=== PATIENT | female | born 1980 | race African-American/Black ===

== ENCOUNTER 2016-12-04 09:36 | Emergency (ER) | payer MEDICAID ==
[~2016-12-04] VITALS: Ht 160 cm; Wt 105.0 kg
[~2016-12-04 09:36] MED LIST: AMOX875 PO; MMW SWISH-SWAL
[2016-12-04 09:37] VITALS: BP 141/71; PULSE 90; RESP 20; TEMP 99; O2SAT 98
--- NOTE | 2016-12-04 10:09 | PD ---
HPI Chief Complaint: GI Complaint Time Seen by Provider: 10:09 Travel History International Travel<30 days: No Contact w/Intl Traveler<30days: No Traveled to known affect area: No History of Present Illness HPI 36 year-old female presents to emergency department for evaluation of nausea, vomiting, and diarrhea. This began this morning. Patient states that her children have both had this and have gotten better on their own. Denies any fever or chills. No cough or chest congestion. Denies any urinary symptoms. She states that she cannot keep anything down. PFSH Past Medical History Medical History: Denies Significant Hx Cancer: No Cardiovascular Problems: No Diminished Hearing: No Endocrine: No Gastrointestinal Disorders: No Genitourinary: No Immune Disorder: No Implanted Vascular Access Dvce: No Musculoskeletal: No Neurologic: No Psychiatric: No Reproductive: No Respiratory: Yes (ASTHMA) Immunizations Current: Yes ?: Not LMP: 11/2016 : 2 Para: 3 Ovarian Cysts: Yes Dilation and Curettage (D&C): Yes Tubal Ligation: Yes Past Surgical History Abdominal Surgery: Yes (appendectomy) Appendectomy: Yes Section: Yes (x 2) Gynecologic Surgery: Yes (C SECTION) Other Surgery: Yes Social History Alcohol Use: No Tobacco Use: No Substance Use: No Allergies-Medications (Allergen,Severity, Reaction): Coded Allergies: Hydrocodone (Verified Allergy, Severe, Swelling, 12/04/16) PATIENT STATES THAT LIQUID LORTAB MADE HER EYES SWELL 1-2 YEARS AGO, 03/14/15 Codeine (Unverified Allergy, Mild, Swelling, 12/04/16) Reported Meds & Prescriptions Reported Meds & Active Scripts Active Zofran Odt (Ondansetron Odt) 4 Mg Tab 4 Mg SL Q6HR PRN Review of Systems Except as stated in HPI: all other systems reviewed are Neg Physical Exam Narrative GENERAL: Well-nourished female patient, ambulatory and in no acute distress SKIN: Warm and dry. HEAD: Atraumatic. Normocephalic. EYES: Pupils equal and round. No scleral icterus. No injection or drainage. ENT: No nasal bleeding or discharge. Mucous membranes pink and moist. NECK: Trachea midline. No JVD. CARDIOVASCULAR: Regular rate and rhythm. No murmur appreciated. RESPIRATORY: No accessory muscle use. Clear to auscultation. Breath sounds equal bilaterally. GASTROINTESTINAL: Abdomen soft, non-tender, nondistended. Hepatic and splenic margins not palpable. MUSCULOSKELETAL: No obvious deformities. No clubbing. No cyanosis. No edema. NEUROLOGICAL: Awake and alert. No obvious cranial nerve deficits. Motor grossly within normal limits. Normal speech. PSYCHIATRIC: Appropriate mood and affect; insight and judgment normal. Data Data Last Documented VS Vital Signs Date Time Temp Pulse Resp B/P Pulse Ox O2 Delivery O2 Flow Rate FiO2 12/04/16 09:37 99.0 90 20 141/71 98 Room Air Orders Influenzae A/B Antigen (12/04/16 10:08) Sodium Chlor 0.9% 1000 Ml Inj (Ns 1000 M (12/04/16 10:15) Ondansetron Inj (Zofran Inj) (12/04/16 10:15) Iv Access Insert/Monitor (12/04/16 10:08) [facility] Medical Decision Making Medical Screen Exam Complete: Yes Emergency Medical Condition: Yes Medical Record Reviewed: Yes Differential Diagnosis Gastritis versus gastroenteritis versus influenza Narrative Course 36-year-old female presents to the emergency department for evaluation. Patient appears overall well and without distress. IV fluids and Zofran is administered. Patient verbalizes improvement in her symptoms. Influenza is negative. This likely a viral gastroenteritis. Patient will be discharged home with a prescription for Zofran. She is encouraged to follow-up with primary care provider and return immediately with any acute worsening of symptoms. Diagnosis Primary Impression: Gastroenteritis Referrals: Primary Care Physician Patient Instructions: Gastroenteritis (ED), General Instructions Departure Forms: Tests/Procedures, Work Release Enter return to work date: Dec 06, 2016 Additional Instructions: Rest Maintain adequate oral hydration Follow-up with the primary care provider Tylenol and/or ibuprofen as directed on the package as needed for fever and/or pain Return immediately to the emergency department with any acute worsening of symptoms Med/Other Pt SpecificInfo: Prescription(s) given Scripts Ondansetron Odt (Zofran Odt)4 Mg Tab4 Mg SL Q6HR PRN (Nausea/Vomiting) #15 TAB Ref 0 Prov:Xenia Stokes 12/04/16 Disposition: 01 DISCHARGE HOME Condition: Stable Xenia Stokes Dec 04, 2016 10:09
[2016-12-04] MEDS ORDERED: SODIUM CHLOR 0.9% 1000 ML INJ 1,000 ML IV ONE (10:15)
[2016-12-04] MEDS ORDERED: ONDANSETRON HCL 4 MG/2 ML VIAL IV PUSH ONE (10:15)
[2016-12-04] MEDS ORDERED: ZOFR4TAB3 SL (11:22)
== END 2016-12-04 13:21 | disposition home or self-care (01) ==
LOC: NEPB 09:36
DX: K52.9 Noninfective gastroenteritis and colitis, unspecified (principal)
CPT/HCPCS: 87804; 96374; 99284; J2405; J7030

== ENCOUNTER 2017-03-02 17:55 | Emergency (ER) | payer MEDICAID ==
[~2017-03-02 17:55] MED LIST changes: -AMOX875 PO; -MMW SWISH-SWAL; +ZOFR4TAB3 SL
[2017-03-02 17:56] VITALS: BP 153/74; PULSE 76; RESP 24; TEMP 98.6; O2SAT 100
== END 2017-03-02 18:47 | disposition left against medical advice (07) ==
LOC: NED 17:55
DX: R68.89 Other general symptoms and signs (principal)
CPT/HCPCS: 99281

== ENCOUNTER 2017-06-26 19:44 | Emergency (ER) | payer MEDICAID ==
[~2017-06-26] VITALS: Ht 160 cm; Wt 110.0 kg
[2017-06-26 19:46] VITALS: BP 166/82; PULSE 75; RESP 15; TEMP 98.7; O2SAT 98
== END 2017-06-26 20:14 | disposition left against medical advice (07) ==
LOC: NED 19:44
DX: Z53.21 Procedure and treatment not carried out due to patient leaving prior to being seen by health care provider (principal)
CPT/HCPCS: 99281

== ENCOUNTER 2017-10-01 07:49 | Emergency (ER) | payer MEDICAID ==
[~2017-10-01] VITALS: Ht 160 cm; Wt 107.0 kg
[2017-10-01 07:50] VITALS: BP 168/95; PULSE 66; RESP 16; TEMP 97.8; O2SAT 98
--- NOTE | 2017-10-01 08:07 | PD ---
HPI Chief Complaint: Medical Clearance Time Seen by Provider: 08:07 Travel History International Travel<30 days: No Contact w/Intl Traveler<30days: No Traveled to known affect area: No History of Present Illness HPI 36-year-old Afro-Mexican female presents emergency Department with worsening bilateral arm and hand numbness which has been progressive over the last 3 weeks. Patient works as a community aide. Patient states when she goes to sleep at night her hands seemed fine but she wakes up several times during the evening with bilateral numbness and tingling worse in the right thumb. Patient feels that the symptoms are worsening over the past 3 weeks. She has no other symptoms. She is allergic to codeine and hydrocodone. PFSH Past Medical History Cancer: No Cardiovascular Problems: No Diminished Hearing: No Endocrine: No Gastrointestinal Disorders: No Genitourinary: No Immune Disorder: No Implanted Vascular Access Dvce: No Musculoskeletal: No Neurologic: No Psychiatric: No Reproductive: No Respiratory: Yes (ASTHMA) Immunizations Current: Yes ?: Not : 2 Para: 3 Ovarian Cysts: Yes Dilation and Curettage (D&C): Yes Tubal Ligation: Yes Past Surgical History Abdominal Surgery: Yes (appendectomy) Appendectomy: Yes Section: Yes (x 2) Gynecologic Surgery: Yes (C SECTION) Other Surgery: Yes Social History Alcohol Use: No Tobacco Use: No Substance Use: No Allergies-Medications (Allergen,Severity, Reaction): Coded Allergies: hydrocodone (Unverified Allergy, Severe, Swelling, 10/01/17) PATIENT STATES THAT LIQUID LORTAB MADE HER EYES SWELL 1-2 YEARS AGO, 03/14/15 codeine (Unverified Allergy, Mild, Swelling, 10/01/17) Reported Meds & Prescriptions Reported Meds & Active Scripts Active Zofran Odt (Ondansetron Odt) 4 Mg Tab 4 Mg SL Q6HR PRN Review of Systems Except as stated in HPI: all other systems reviewed are Neg General / Constitutional: No: Fever Eyes: No: Visual changes HENT: No: Headaches Cardiovascular: No: Chest Pain or Discomfort Respiratory: No: Shortness of Breath Gastrointestinal: No: Abdominal Pain Genitourinary: No: Dysuria Musculoskeletal: Positive: Arthralgias, Pain, Other (wrist and hand numbness.) Skin: No Rash Neurologic: No: Weakness Psychiatric: No: Depression Endocrine: No: Polydipsia Hematologic/Lymphatic: No: Easy Bruising Physical Exam Narrative GENERAL: Patient is in no acute distress. SKIN: Warm and dry. HEAD: Atraumatic. Normocephalic. EYES: Pupils equal and round. No scleral icterus. No injection or drainage. ENT: No nasal bleeding or discharge. Mucous membranes pink and moist. Pharynx is clear. Airway is patent. NECK: Trachea midline. No bony tenderness or step-off. Range of motion is full without pain. CARDIOVASCULAR: Regular rate and rhythm. RESPIRATORY: No accessory muscle use. Clear to auscultation. Breath sounds equal bilaterally. MUSCULOSKELETAL: Extremities without clubbing, cyanosis, or edema. No obvious deformities. NEUROLOGICAL: Awake and alert. No obvious cranial nerve deficits. Motor grossly within normal limits. Five out of 5 muscle strength in the arms and legs. Normal speech. Patient has normal paint preparer strength bilaterally in both hands, but has have a positive Tinel's more on the right than the left at the wrist. PSYCHIATRIC: Appropriate mood and affect; insight and judgment normal. Data Data Last Documented VS Vital Signs Date Time Temp Pulse Resp B/P (MAP) Pulse Ox O2 Delivery O2 Flow Rate FiO2 10/01/17 07:50 97.8 66 16 168/95 (119) 98 Room Air Orders Orders Splint Or Brace Apply/Monitor (10/01/17 08:16) Splint Or Brace Apply/Monitor (10/01/17 08:16) MDM Medical Decision Making Medical Screen Exam Complete: Yes Emergency Medical Condition: Yes Differential Diagnosis Repetitive motion injury. Carpal tunnel. Upper extremity neuralgia. Narrative Course Patient is felt to have bilateral carpal tunnel syndrome secondary to repetitive motion at work. Patient is placed in bilateral carpal tunnel wrist splints. Patient is given ibuprofen 600 mg 3 times a day #30. 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 claim for this issue. Patient should follow-up here if symptoms worsen as needed. Diagnosis Primary Impression: Carpal tunnel syndrome on both sides Patient Instructions: Carpal Tunnel Syndrome (DC), General Instructions Departure Forms: Work Release Special Instructions: Patient should wear carpal tunnel splints at all times until cleared by Worker's Comp. provider. Additional Instructions: Patient is felt to have bilateral carpal tunnel syndrome secondary to repetitive motion at work. Patient is placed in bilateral carpal tunnel wrist splints. Patient is given ibuprofen 600 mg 3 times a day #30. 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 claim for this issue. Patient should follow-up here if symptoms worsen as needed. Med/Other Pt SpecificInfo: Prescription(s) given Disposition: 01 DISCHARGE HOME Condition: Stable Jeison Odonnell Oct 01, 2017 08:07
[2017-10-01] MEDS ORDERED: IBUP-232 PO (08:23)
== END 2017-10-01 08:52 | disposition home or self-care (01) ==
LOC: NEPD 07:49
DX: G56.03 Carpal tunnel syndrome, bilateral upper limbs (principal); J45.909 Unspecified asthma, uncomplicated
CPT/HCPCS: 99283; L3908

== ENCOUNTER 2017-10-21 18:57 | Emergency (ER) | payer MEDICAID ==
[~2017-10-21] VITALS: Ht 160 cm; Wt 105.5 kg
[~2017-10-21 18:57] MED LIST changes: +IBUP-232 PO
[2017-10-21 18:59] VITALS: BP 121/70; PULSE 64; RESP 14; TEMP 98.4; O2SAT 99
--- NOTE | 2017-10-22 12:15 | PD ---
Physical Exam Date Seen by Provider: Oct 22, 2017 Time Seen by Provider: 22:58 Narrative 36 year old female presents to the emergency department for evaluation of a constant headache since October 13. Current pain is 8/10. Data Data Last Documented VS Vital Signs Date Time Temp Pulse Resp B/P (MAP) Pulse Ox O2 Delivery O2 Flow Rate FiO2 10/21/17 18:59 98.4 64 14 121/70 (87) 99 Room Air MDM Supervised Visit with GERTRUDE: No Narrative Course 36 year old female presents to the emergency department for evaluation of a headache. Patient is initially seen in triage. She left AMA before she could be moved to a medical bed. Diagnosis Primary Impression: Left against medical advice Additional Impression: Headache Qualified Codes: R51 - Headache Disposition: 07 AGAINST MEDICAL ADVICE Anu Santana Oct 22, 2017 12:15
== END 2017-10-21 22:57 | disposition left against medical advice (07) ==
LOC: NED 18:57
DX: R51 Headache (principal); Z53.21 Procedure and treatment not carried out due to patient leaving prior to being seen by health care provider
CPT/HCPCS: 99281

== ENCOUNTER 2018-01-23 07:58 | Emergency (ER) | payer MEDICAID ==
[~2018-01-23] VITALS: Ht 160 cm; Wt 99.5 kg
[2018-01-23 08:00] VITALS: BP 133/76; PULSE 66; RESP 16; TEMP 97.5; O2SAT 100
[2018-01-23] MEDS ORDERED: BUTA1CAP PO (08:17)
--- NOTE | 2018-01-23 08:17 | PD ---
HPI Chief Complaint: Headache Time Seen by Provider: 08:04 Travel History International Travel<30 days: No Contact w/Intl Traveler<30days: No Traveled to known affect area: No History of Present Illness HPI 37 years old female complains a headache. Patient states that headache started a week ago. Patient states that she has a lot of mental stress at home. Patient denies any recent head injury. Patient denies any visual change. Patient denies any neck pain. Patient denies any chest pain or shortness of breath. Patient denies abdominal pain. Patient denies any focal weakness or numbness of the extremity. PFSH Past Medical History Cancer: No Cardiovascular Problems: No Diminished Hearing: No Endocrine: No Gastrointestinal Disorders: No Genitourinary: No Immune Disorder: No Implanted Vascular Access Dvce: No Musculoskeletal: No Neurologic: No Psychiatric: No Reproductive: No Respiratory: Yes (ASTHMA) Immunizations Current: Yes ?: Not LMP: LAST WEEK : 2 Para: 3 Ovarian Cysts: Yes Dilation and Curettage (D&C): Yes Tubal Ligation: Yes Past Surgical History Abdominal Surgery: Yes (appendectomy) Appendectomy: Yes Section: Yes (x 2) Gynecologic Surgery: Yes (C SECTION) Other Surgery: Yes Social History Alcohol Use: No Tobacco Use: No Substance Use: No Allergies-Medications (Allergen,Severity, Reaction): Coded Allergies: hydrocodone (Unverified Allergy, Severe, Swelling, 01/23/18) PATIENT STATES THAT LIQUID LORTAB MADE HER EYES SWELL 1-2 YEARS AGO, 03/14/15 codeine (Unverified Allergy, Mild, Swelling, 01/23/18) Reported Meds & Prescriptions Reported Meds & Active Scripts Active No Active Prescriptions or Reported Medications Review of Systems General / Constitutional: No: Fever Eyes: No: Visual changes HENT: Positive: Headaches Cardiovascular: No: Chest Pain or Discomfort Respiratory: No: Shortness of Breath Gastrointestinal: No: Abdominal Pain Genitourinary: No: Dysuria Musculoskeletal: No: Pain Skin: No Rash Neurologic: No: Weakness Psychiatric: No: Depression Endocrine: No: Polydipsia Hematologic/Lymphatic: No: Easy Bruising Physical Exam Narrative GENERAL: Well-nourished, well-developed patient. SKIN: Focused skin assessment warm/dry. HEAD: Normocephalic. EYES: No scleral icterus. No injection or drainage. Pupils 2 mm equal reactive. NECK: Supple, trachea midline. No JVD or lymphadenopathy. No meningismus CARDIOVASCULAR: Regular rate and rhythm without murmurs, gallops, or rubs. RESPIRATORY: Breath sounds equal bilaterally. No accessory muscle use. GASTROINTESTINAL: Abdomen soft, non-tender, nondistended. MUSCULOSKELETAL: No cyanosis, or edema. BACK: Nontender without obvious deformity. No CVA tenderness. Neurologic exam normal. Data Data Last Documented VS Vital Signs Date Time Temp Pulse Resp B/P (MAP) Pulse Ox O2 Delivery O2 Flow Rate FiO2 01/23/18 08:00 97.5 66 16 133/76 (95) 100 MDM Medical Decision Making Medical Screen Exam Complete: Yes Emergency Medical Condition: Yes Differential Diagnosis Differential diagnosis including tension headache, cluster headache, migraine headache. Narrative Course 37 years old female with headache. Mental stress at home. Physical exam benign today. Diagnosis Primary Impression: Cephalgia Qualified Codes: R51 - Headache Patient Instructions: General Instructions Additional Instructions: Fioricet as needed for headache. Follow up with local physician. Return if worse. Med/Other Pt SpecificInfo: Prescription(s) given Scripts Rgjswvhnlx-Mfzxuwgevnslc-Sluxvpab (Fioricet) 50-300-40 Mg Cap 1-2 CAP PO Q6H Y for HEADACHE, #20 CAP 0 Refills Prov: Andrei Espinal MD 01/23/18 Disposition: 01 DISCHARGE HOME Condition: Stable Andrei Espinal MD Jan 23, 2018 08:17
== END 2018-01-23 08:25 | disposition home or self-care (01) ==
LOC: PHED 07:58
DX: R51 Headache (principal); J45.909 Unspecified asthma, uncomplicated
CPT/HCPCS: 99283

== ENCOUNTER 2018-03-08 11:10 | Emergency (ER) | payer MEDICAID ==
[~2018-03-08] VITALS: Ht 160 cm; Wt 97.0 kg
[~2018-03-08 11:10] MED LIST changes: +BUTA1CAP PO; -IBUP-232 PO; -ZOFR4TAB3 SL
[2018-03-08 11:12] VITALS: BP 145/73; PULSE 80; RESP 16; TEMP 98.5; O2SAT 100
[2018-03-08] MEDS ORDERED: CIPR0.3S RIGHT EAR (11:31)
--- NOTE | 2018-03-08 11:34 | PD ---
HPI Chief Complaint: ENT Complaint Time Seen by Provider: 11:26 Travel History International Travel<30 days: No Contact w/Intl Traveler<30days: No Traveled to known affect area: No History of Present Illness HPI Patient comes to the emergency department complaining of right ear pain ongoing for 3 days. Patient reports she woke with the pain. Describes pain as aching stabbing pain without radiation. Touching her right ear makes pain worse. Denies anything making it better. Reports decreased hearing. Denies any known fevers, headaches, neck pain, or recent swimming. PFSH Past Medical History Asthma: Yes Cancer: No Cardiovascular Problems: No Diminished Hearing: No Endocrine: No Gastrointestinal Disorders: No Genitourinary: No Immune Disorder: No Implanted Vascular Access Dvce: No Musculoskeletal: No Neurologic: No Psychiatric: No Reproductive: No Respiratory: Yes (ASTHMA) Immunizations Current: Yes ?: Not LMP: 01/27/2018-IRREGULAR, +TL : 2 Para: 3 Ovarian Cysts: Yes Dilation and Curettage (D&C): Yes Tubal Ligation: Yes Past Surgical History Abdominal Surgery: Yes (appendectomy) Appendectomy: Yes Section: Yes (X's 2) Gynecologic Surgery: Yes (C SECTION) Other Surgery: Yes Social History Alcohol Use: No Tobacco Use: No Substance Use: No Allergies-Medications (Allergen,Severity, Reaction): Coded Allergies: hydrocodone (Unverified Allergy, Severe, Swelling, 03/08/18) PATIENT STATES THAT LIQUID LORTAB MADE HER EYES SWELL 1-2 YEARS AGO, 03/14/15 codeine (Unverified Allergy, Mild, Swelling, 03/08/18) Reported Meds & Prescriptions Reported Meds & Active Scripts Active Ciprodex Otic Drops (Ciprofloxacin-Dexamethasone Otic Drops) 0.3-0.1% Susp 4 Drop RIGHT EAR BID Fioricet (Bjngdikmea-Isecfsubgggsr-Qdfbuozm) 50-300-40 Mg Cap 1-2 Cap PO Q6H PRN Review of Systems Except as stated in HPI: all other systems reviewed are Neg Physical Exam Narrative GENERAL: Well-developed, overly nourished, in no acute distress, and non-ill appearing. SKIN: Focused skin assessment warm and dry. HEAD: Atraumatic. Normocephalic. EYES: Pupils equal and round. EOMI. No scleral icterus. No injection or drainage. ENT: No nasal bleeding or discharge. Mucous membranes pink and moist. Left tympanic membrane pearly gamboa. Right tympanic membrane not visualized secondary to auditory canal edema. Patient reports tenderness with tugging of tragus. NECK: Trachea midline. No cervical lymphadenopathy. Supple. No nuclear rigidity. RESPIRATORY: No accessory muscle use. No respiratory distress. MUSCULOSKELETAL: No obvious deformities. No clubbing. No cyanosis. No edema. Full range of motion. NEUROLOGICAL: Awake and alert. No obvious cranial nerve deficits. Motor grossly within normal limits. Normal speech. PSYCHIATRIC: Appropriate mood and affect; insight and judgment normal. Data Data Last Documented VS Vital Signs Date Time Temp Pulse Resp B/P (MAP) Pulse Ox O2 Delivery O2 Flow Rate FiO2 03/08/18 11:12 98.5 80 16 145/73 (97) 100 Orders Orders Ed Discharge Order (03/08/18 11:30) [facility] Medical Decision Making Medical Screen Exam Complete: Yes Emergency Medical Condition: Yes Differential Diagnosis Otitis media, otitis externa, otalgia, cerumen impaction Narrative Course The patient presented with ear pain. History and examination revealed evidence of otitis externa. There was no significant swelling of the canal nor significant debris. No clinical evidence by history or evaluation to suspect meningitis and/or sepsis, nor malignant OE or mastoiditis. I discussed with the patient, diagnosis, plan of care and to follow up with the patients primary physician within the next week. The patient was discharged on otic antibiotic drops. The patient was instructed to not swim or submerge head in bath or shower , or any other activity that would allow water into canal until cleared by their physician. The patient was instructed to return if worsens in anyway, especially if increased pain, develop fever, headache, neck pain or as needed. The patient agreed with plan. Patient in no obvious distress upon re-evaluation. Patient was asked if they wanted to speak to my attending, which the patient did not wish to do at this time. Any questions/concerns in reference to patient diagnosis/condition discussed and clarified prior to patient's discharge. Reinforced sheer importance of close follow up with patient's primary physician or primary care clinic and/or ENT. Instructed patient to return to ED immediately, if symptoms return/worsen. Patient showed understanding of above instructions. Further instructions and recommendations were detailed in discharge paperwork. Patient ambulated without difficulty out of ED at discharge. Diagnosis Primary Impression: Otitis externa Qualified Codes: H60.501 - Unspecified acute noninfective otitis externa, right ear Referrals: Joey Maurice MD Patient Instructions: Ear Infection (DC), General Instructions Additional Instructions: Follow-up with your primary care physician and/or ENT this week for reevaluation. Take all medication as prescribed. Use [id number] Tylenol or ibuprofen as needed for pain. Follow instructions on the packaging. Return to the emergency department if symptoms get worse. Med/Other Pt SpecificInfo: Prescription(s) given Scripts Ciprofloxacin-Dexamethasone Otic Drops (Ciprodex Otic Drops) 0.3-0.1% Susp 4 DROP RIGHT EAR BID for Infection, #1 BOTTLE 0 Refills Prov: Trupti Mccloud MD 03/08/18 Disposition: 01 DISCHARGE HOME Condition: Stable Mike Steven Mar 08, 2018 11:34
[2018-03-08 11:41] VITALS: BP 161/75
== END 2018-03-08 11:41 | disposition home or self-care (01) ==
LOC: PHEFT 11:10
DX: H60.91 Unspecified otitis externa, right ear (principal); J45.909 Unspecified asthma, uncomplicated; Z88.5 Allergy status to narcotic agent; Z79.899 Other long term (current) drug therapy
CPT/HCPCS: 99283

== ENCOUNTER 2018-03-13 16:12 | Emergency (ER) | payer MEDICAID ==
[~2018-03-13 16:12] MED LIST changes: +CIPR0.3S RIGHT EAR
[2018-03-13 16:21] VITALS: BP 136/65; PULSE 77; RESP 16; TEMP 98.8; O2SAT 99
[2018-03-13] MEDS ORDERED: CEPH-460 PO (17:17)
[2018-03-13] MEDS ORDERED: BACT800T5 PO (17:17)
--- NOTE | 2018-03-13 17:22 | PD ---
HPI Chief Complaint: ENT Complaint Time Seen by Provider: 17:04 Travel History International Travel<30 days: No Contact w/Intl Traveler<30days: No Traveled to known affect area: No History of Present Illness HPI 37-year-old female presents emergency department for evaluation of the right ear. Says that several days ago the ear started hurting and yesterday she developed pus coming from the ear. Says the pain is currently 9/10 and nonradiating. No exacerbating or relieving factors. Says she has been using medication as prescribed which include Ciprodex. She denies fevers or chills. Denies stiff neck. She has no other complaints today. PFSH Past Medical History Medical History: Denies Significant Hx Asthma: Yes Cancer: No Cardiovascular Problems: No Diminished Hearing: No Endocrine: No Gastrointestinal Disorders: No Genitourinary: No Immune Disorder: No Implanted Vascular Access Dvce: No Musculoskeletal: No Neurologic: No Psychiatric: No Reproductive: No Respiratory: Yes (ASTHMA) Immunizations Current: Yes Tetanus Vaccination: < 5 Years Influenza Vaccination: Yes ?: Not LMP: 02/17/18 : 2 Para: 3 Ovarian Cysts: Yes Dilation and Curettage (D&C): Yes Tubal Ligation: Yes Past Surgical History Abdominal Surgery: Yes (appendectomy) Appendectomy: Yes Section: Yes (X's 2) Gynecologic Surgery: Yes (C SECTION) Other Surgery: Yes Social History Alcohol Use: No Tobacco Use: No Substance Use: No Allergies-Medications (Allergen,Severity, Reaction): Coded Allergies: hydrocodone (Verified Allergy, Severe, Swelling, 03/13/18) PATIENT STATES THAT LIQUID LORTAB MADE HER EYES SWELL 1-2 YEARS AGO, 03/14/15 codeine (Verified Allergy, Mild, Swelling, 03/13/18) Reported Meds & Prescriptions Reported Meds & Active Scripts Active Doxycycline Hyclate 100 Mg Cap 100 Mg PO BID 7 Days Ciprodex Otic Drops (Ciprofloxacin-Dexamethasone Otic Drops) 0.3-0.1% Susp 4 Drop RIGHT EAR BID Review of Systems Except as stated in HPI: all other systems reviewed are Neg Physical Exam Narrative GENERAL: Well-nourished, well-developed patient, in NAD SKIN: Focused skin assessment warm/dry. No rashes or lesions. HEAD: Normocephalic. Atraumatic. EYES: No scleral icterus. No injection or drainage. Right ear-area of fluctuance on the 2 o'clock position of the canal-spontaneous white and bloody discharge from a puncta. Unable to assess further into the canal THROAT: No pharyngeal injection, exudates, or tonsillar hypertrophy. Airway is patent. NECK: Supple, trachea midline. No JVD or lymphadenopathy. No meningismus. CARDIOVASCULAR: Regular rate and rhythm without murmurs, gallops, or rubs. RESPIRATORY: Breath sounds equal bilaterally. No accessory muscle use. No wheezes, rales, or rhonchi MUSCULOSKELETAL: No cyanosis, or edema. BACK: Nontender without obvious deformity. No CVA tenderness. Data Data Last Documented VS Vital Signs Date Time Temp Pulse Resp B/P (MAP) Pulse Ox O2 Delivery O2 Flow Rate FiO2 03/13/18 16:21 98.8 77 16 136/65 (88) 99 Orders Orders Wound Culture And Gram Stain (03/13/18 17:18) Sulfamet-Trimeth Ds 800-160 Mg (Bactrim (03/13/18 17:30) Cephalexin (Keflex) (03/13/18 17:30) Ed Discharge Order (03/13/18 17:35) MDM Medical Decision Making Medical Screen Exam Complete: Yes Emergency Medical Condition: Yes Differential Diagnosis Right ear abscess, otitis externa, otitis media, atopic dermatitis Narrative Course 37-year-old female presents emergency department for reevaluation of her right ear. Says she has been using medication as prescribed to include Ciprodex. Upon further evaluation and questioning, patient has been taking Cipro 500 mg twice a day from another provider. Her vital signs are stable. Bactrim and Keflex administered in the emergency department. I discussed this case with my attending and he recommended she continue Cipro and add doxycycline for coverage. We also placed a wick to encourage drainage and better treatment of the ear. Patient should follow-up in 2 days back to the emergency department for further evaluation. Return sooner for worsening or persistent symptoms. Procedures Procedure Narrative An ear wick was placed in the right ear canal and Ciprodex applied to the wick. The area was covered with a cottonball. Diagnosis Primary Impression: Ear infection Referrals: Primary Care Physician Patient Instructions: General Instructions Additional Instructions: Take all antibiotics as prescribed. Continue your ear drops as prescribed. Return in 2 days for recheck. The wick should fall out on its own. You received your first dose of antibiotic in the ED today. Start your next dose tomorrow morning. Continue cipro. If your pain persists or worsens, return to the ED. Follow up with your primary care physician within 4 days. you may change your cotton ball daily. Keep the ear clean and dry. Scripts Doxycycline Hyclate (Doxycycline Hyclate) 100 Mg Cap 100 MG PO BID for Infection for 7 Days, #14 CAP 0 Refills Prov: Andrei Espinal MD 03/13/18 Disposition: 01 DISCHARGE HOME Condition: Stable Laura Dickerson Mar 13, 2018 17:22
[2018-03-13] MEDS ORDERED: SULFAMETHOXAZOLE-TRIMETHOPRIM DS 800-160 MG TAB PO ONE (17:30)
[2018-03-13] MEDS ORDERED: CEPHALEXIN MONOHYDRATE 500 MG CAP PO ONE (17:30)
[2018-03-13] MEDS ORDERED: DOXY100C PO (17:31)
== END 2018-03-13 17:54 | disposition home or self-care (01) ==
LOC: PHEFT 16:12
DX: H66.91 Otitis media, unspecified, right ear (principal); J45.909 Unspecified asthma, uncomplicated
CPT/HCPCS: 87070; 87205; 99283